=== PATIENT | male | born 1990 | race Hispanic/Latino ===

== ENCOUNTER 2017-03-15 12:38 | Emergency (ER) | payer BC ==
[2017-03-15] MEDS ORDERED: DiphenhydrAMINE 50 mg/ml Inj ONE (12:56)
[2017-03-15] MEDS ORDERED: DiphenhydrAMINE 50 mg/ml Inj IM STA (13:00)
[2017-03-15] MEDS ORDERED: Dextrose 50% SYRINGE Inj (50 ml) ONE (13:09)
[2017-03-15] MEDS ORDERED: Sodium Chloride 0.9% 1,000 ML IV ONE ×2 (13:13→14:55)
[2017-03-15] MEDS ORDERED: Dextrose 50% SYRINGE Inj (50 ml) IV STA (13:30)
[2017-03-15 13:51] LABS: BASO # 0.1 K/uL (0.0-0.2); BASO % 0.6 % (0.0-2.0); EOS # 0.2 K/uL (0.0-0.7); EOS % 2.7 % (0.0-4.0); HEMATOCRIT 47.5 % (35.0-51.0); LYMPH # 3.2 K/uL (1.0-4.3); LYMPH % 35.2 % (20.0-40.0); MEAN CELL VOLUME 96.2 fL (80.0-94.0); MEAN CORPUSCULAR HEMOGLOBIN 32.7 pg (27.0-31.0); MEAN PLATELET VOLUME 8.3 fL (7.2-11.7); MONO # 0.8 K/uL (0.0-0.8); MONO % 9.3 % (0.0-10.0); NRBC % 0.2 % (0.0-2.0); RED CELL DISTRIBUTION WIDTH 13.5 % (11.5-14.5)
[2017-03-15] MEDS ORDERED: Lactated Ringer's 1,000 ML ONE (13:58)
[2017-03-15] MEDS ORDERED: Lactated Ringer's 1,000 ML IV SCH (14:00)
[2017-03-15 14:14] LABS: ALB/GLOB RATIO 1.7 (1.0-2.1); ALCOHOL SERUM < 10 mg/dl (0-10); BILIRUBIN,TOTAL 1.2 mg/dL (0.2-1.3); CALCIUM 9.2 mg/dl (8.6-10.4); GFR AFRICAN-AMERICAN > 60; GLUCOSE,RANDOM 73 mg/dL (75-110); TOTAL PROTEIN 7.4 g/dL (6.3-8.3)
[2017-03-15] MEDS ORDERED: Lactated Ringer's 1,000 ML IV ONE (14:14)
[2017-03-15 14:18] LABS: URINE BILIRUBIN NEGATIVE (NEGATIVE); URINE BLOOD NEGATIVE (NEGATIVE); URINE COLOR Straw (YELLOW); URINE GLUCOSE (UA) 1+ mg/dL (Normal); URINE KETONE TRACE mg/dL (NEGATIVE); URINE LEUKOCYTE ESTERASE NEG Leu/uL (Negative); URINE PROTEIN NEGATIVE (NEGATIVE); URINE UROBILINOGEN NORMAL mg/dL (0.2-1.0); WBC URINE < 1 /hpf (0-5)
[2017-03-15 14:20] LABS: ALKALINE PHOSPHATASE 45 U/L (38-126); ALT/SGPT 68 U/L (21-72); AST/SGOT 91 U/L (17-59); BLOOD UREA NITROGEN 17 mg/dL (9-20); CARBON DIOXIDE 27 mmol/L (22-30); CHLORIDE 100 mmol/L (98-107); POTASSIUM 4.1 mmol/L (3.6-5.2); SODIUM 136 mmol/L (132-148)
[2017-03-15] MEDS ORDERED: Sodium Chloride 0.9% 1,000 ML ONE (15:14)
--- NOTE | 2017-03-15 17:38 | C.PDOC ---
History Of Present Illness 26-year-old male brought to the emergency department by EMS, accompanied by police, for evaluation of bizarre behavior/substance abuse on the street. Patient arrives to ED agitated and appears to be under the influence of drugs. Hx is limited due to intoxication. Time Seen by Provider: 03/15/17 12:43 Chief Complaint (Nursing): Substance Abuse History Per: EMS (+ Police) History/Exam Limitations: intoxication Onset/Duration Of Symptoms: Unknown Current Symptoms Are (Timing): Still Present Modifying Factor(s): Other (substance abuse, ? PCP) Severity: Moderate Associated Symptoms: Agitation Involuntary Hold By: Emergency Physician Past Medical History Reviewed: Historical Data, Nursing Documentation, Vital Signs Vital Signs: Last Vital Signs Temp 97.9 F 03/15/17 15:58 Pulse 97 H 03/15/17 18:30 Resp 17 03/15/17 18:30 BP 134/49 L 03/15/17 18:30 Pulse Ox 96 03/15/17 18:30 Family History: States: Unknown Family Hx - Social History Hx Alcohol Use: (unknown) Hx Substance Use: Yes Review Of Systems Review Of Systems: ROS cannot be obtained secondary to pt's inabilty to answer questions. Physical Exam - Physical Exam Appears: Non-toxic, Other (awake, appears under influence of drugs, agitated) Skin: Warm, Dry, No Rash Head: Atraumatic, Normacephalic Eye(s): bilateral: Other (pupils dilated, approx 6mm) Oral Mucosa: Moist Neck: Normal, Normal ROM, No Midline Cervical Tenderness, No Paracervical Tenderness, No Step Off Deformity Cardiovascular: Rhythm Regular (Tachycardic), No Murmur Respiratory: Normal Breath Sounds, No Accessory Muscle Use, No Rales, No Rhonchi , No Wheezing Gastrointestinal/Abdominal: Normal Exam, Bowel Sounds, Soft, No Tenderness Extremity: Normal ROM, No Tenderness, No Deformity ED Course And Treatment - Laboratory Results Result Diagrams: 03/15/17 13:44 03/15/17 13:44 O2 Sat by Pulse Oximetry: 95 (on RA) Pulse Ox Interpretation: Normal Progress Note: Patient agitated and agressive on arrival - given 5mg Haldol, 3mg Ativan and 2.5mg Benadryl IM. Accuchek was low, IV inserted and patient given amp of D50. Blood work, UDS ordered and reviewed. Patient pending sobriety. 5:30pm- Patient sleeping, arousable to verbal stimuli. Pending sobriety/reassessment. 6:50pm- Patient still appears under influence, is drowsy appearing and unable to walk. Will sign out pending sobriety. Disposition - Disposition Disposition Time: 19:00 Condition: STABLE Forms: [facility] (Slovenian) - Clinical Impression Clinical Impression: PCP (phencyclidine) abuse, Benzodiazepine abuse - Scribe Statement The provider has reviewed the documentation as recorded by the Scribe (Merissa Mcnally) All medical record entries made by the Scribe were at my direction and personally dictated by me. I have reviewed the chart and agree that the record accurately reflects my personal performance of the history, physical exam, medical decision making, and the department course for this patient. I have also personally directed, reviewed, and agree with the discharge instructions and disposition. Physician Patient Turnover Patient Signed Over To: Cindy Vega Handoff Comments: pending sobriety.
[2017-03-15 21:30] VITALS: RESP 16; O2SAT 99
[2017-03-16 00:17] VITALS: BP 130/63; PULSE 90; TEMP 98.2
--- NOTE | 2017-03-17 16:51 | CARD ---
APPROVED REPORT EKG Measurement Heart [id number] <Conclusion> Sinus tachycardia Incomplete right bundle branch block Borderline ECG
== END 2017-03-16 00:22 | disposition home or self-care (01) ==
LOC: C.ER 12:38
DX: F16.10 Hallucinogen abuse, uncomplicated (principal)
CPT/HCPCS: 80053; 81001; 82948; 85025; 93005; 96361; 96372; 96374; 99285; G0480; J1200; J1630; J2060; J7040; J7120